=== PATIENT | male | born 1990 | race Caucasian/White ===

== ENCOUNTER 2016-11-19 13:08 | Emergency (ER) | payer MEDICAID ==
[2016-11-19 13:22] VITALS: BP 128/74
--- NOTE | 2016-11-19 14:39 | ED Physician Documentation ---
PD HPI MHE - Stated complaint Stated Complaint: RX REFILL - Chief complaint Chief Complaint: General - History obtained from History obtained from: Patient - History of Present Illness Primary symptom: Anxiety, Other (sleep problems) Timing - onset: Chronic Contributing factors: Out of meds (his brother had back surgery and he is here to help out the family for a month now and still will be here longer. Tried to get appt with local clinic but [facility] was earliest and is still not until end of the month. He is out of his usual meds for couple weeks now and feeling anxious and sleep problems. Here for Rx of his meds to get him til first clinic appt.) Recently seen: Not recently seen (last visit to PMD was few months ago back home.) Review of Systems Constitutional: denies: Fever Nose: denies: Rhinorrhea / runny nose, Congestion Throat: denies: Sore throat Respiratory: denies: Cough GI: denies: Nausea, Vomiting Psychiatric: reports: Anxiety, Insomnia. denies: Depressed, Suicidal Endocrine: denies: Weight loss Immunocompromised: denies: Immunocompromised PD PAST MEDICAL HISTORY - Present Medications Home Medications: Ambulatory Orders Medication Instructions Recorded Confirmed Lorazepam [Ativan] 1 mg PO BID 11/19/16 11/19/16 Lorazepam [Ativan] 1 mg PO BID PRN #60 tablet 11/19/16 Quetiapine Fumarate [Seroquel Xr] 300 mg PO DAILY 11/19/16 11/19/16 Quetiapine Fumarate [Seroquel Xr] 300 mg PO DAILY #30 tab.er.24h 11/19/16 - Allergies Allergies/Adverse Reactions: Allergies Allergy/AdvReac Type Severity Reaction Status Date / Time kiwi Allergy Unknown Verified 11/19/16 13:22 watermelon Allergy Unknown Verified 11/19/16 13:22 - Social History Does the pt smoke?: No Smoking Status: Never smoker PD ED PE NORMAL - Vitals Vital signs reviewed: Yes - General General: Alert and oriented X 3, No acute distress, Well developed/nourished - Neck Neck: Supple, no meningeal sign, No adenopathy - Cardiac Cardiac: RRR, No murmur - Respiratory Respiratory: Clear bilaterally - Derm Derm: Normal color, Warm and dry - Neuro Neuro: Alert and oriented X 3, No motor deficit, Normal speech Results - Vitals Vitals: Vital Signs - 24 hr 11/19/16 13:16 Temperature 37.5 C Heart Rate 97 Respiratory 18 Rate Blood Pressure 128/74 O2 Saturation 98 Oxygen O2 Source Room air Departure - Departure Disposition: 01 Home, Self Care Clinical Impression: Anxiety, Medication requested Condition: Stable Record reviewed to determine appropriate education?: Yes Follow-Up: [facility] [Provider Group] Prescriptions: Lorazepam [Ativan] 1 mg PO BID PRN #60 tablet PRN Reason: Anxiety Quetiapine Fumarate [Seroquel Xr] 300 mg PO DAILY #30 tab.er.24h Comments: Resume your usual medications. Follow up [facility] on as planned. Drink lots of fluids. Discharge Date/Time: 11/19/16 14:53
== END 2016-11-19 14:53 | disposition home or self-care (01) ==
LOC: ED 13:08
DX: Z76.0 Encounter for issue of repeat prescription (principal); F41.9 Anxiety disorder, unspecified
CPT/HCPCS: 99283

== ENCOUNTER 2016-11-22 18:41 | Emergency (ER) | payer MEDICAID ==
[2016-11-22] MEDS ORDERED: SODIUM CHLORIDE 0.9% 1,000 ML IV ONE ×2 (19:30)
[2016-11-22] MEDS ORDERED: KETOROLAC 60 MG/2 ML VIAL IVP STA (19:37)
[2016-11-22] MEDS ORDERED: KETOROLAC 30 MG/ML VIAL ONE (19:46)
[2016-11-22] MEDS ORDERED: IOPAMIDOL-300 100 ML VIAL IVP ONE (20:10)
[2016-11-22] MEDS ORDERED: DICYCLOMINE 10 MG CAPSULE PO STA (20:41)
[2016-11-22] MEDS ORDERED: DICYCLOMINE 10 MG CAPSULE PO ONE (20:44)
[2016-11-22] MEDS ORDERED: SUCRALFATE 1 GM/10 ML UDC PO STA (20:49)
[2016-11-22] MEDS ORDERED: MAG HYDROX/AL HYDROX/SIMETH 30 ML UDC PO STA (20:49)
[2016-11-22] MEDS ORDERED: LIDOCAINE VISCOUS 2% 15 ML UDC MM STA (20:49)
[2016-11-22] MEDS ORDERED: LIDOCAINE VISCOUS 2% 15 ML UDC MM ONE (20:56)
[2016-11-22] MEDS ORDERED: MAG HYDROX/AL HYDROX/SIMETH 30 ML UDC ONE (20:57)
== END 2016-11-22 20:59 | disposition home or self-care (01) ==
DX: K21.9 Gastro-esophageal reflux disease without esophagitis (principal); R19.7 Diarrhea, unspecified; F17.200 Nicotine dependence, unspecified, uncomplicated
CPT/HCPCS: 36415; 74177; 80053; 83690; 85025; 96374; 99283; 99284; A9270; Q9967

== ENCOUNTER 2016-12-15 13:10 | Emergency (ER) | payer MEDICAID ==
[2016-12-15 13:41] VITALS: BP 156/90
--- NOTE | 2016-12-15 13:54 | ED Physician Documentation ---
History of Present Illness - Stated complaint Stated Complaint: MED REFILL - Chief complaint Chief Complaint: General - History obtained from History obtained from: Patient - History of Present Illness Timing: Other (Recently moved to the area, out of his medications and needs a refill, no acute emergency. He had an appointment with a psychiatrist a few days ago but they canceled it, he is rescheduled for the 17th of this month. Denies suicidal or homicidal ideations.) Review of Systems Constitutional: reports: Reviewed and negative Throat: reports: Reviewed and negative Cardiac: reports: Reviewed and negative PD PAST MEDICAL HISTORY - Past Medical History GI: GERD Psych: Anxiety, ADD/ADHD - Past Surgical History Past Surgical History: No - Present Medications Home Medications: Ambulatory Orders Medication Instructions Recorded Confirmed Quetiapine Fumarate [Seroquel Xr] 300 mg PO DAILY #30 tab.er.24h 11/19/16 Omeprazole [PriLOSEC] 20 mg PO DAILY #30 capsule 11/22/16 12/15/16 Ondansetron Odt [Zofran] 4 mg TL Q6H PRN #10 tablet 11/22/16 12/15/16 Sucralfate 1 gm PO ACHS #60 tablet 11/22/16 12/15/16 Alprazolam [Xanax] 1 mg ORAL BID 12/15/16 12/15/16 Alprazolam [Xanax] 1 mg PO BID PRN #20 tablet 12/15/16 Omeprazole [PriLOSEC] 20 mg PO DAILY #30 capsule 12/15/16 Quetiapine Fumarate [Seroquel Xr] 300 mg PO DAILY #30 tab.er.24h 12/15/16 Sucralfate 1 gm PO ACHS #60 tablet 12/15/16 - Allergies Allergies/Adverse Reactions: Allergies Allergy/AdvReac Type Severity Reaction Status Date / Time kiwi Allergy Unknown Verified 12/15/16 13:36 watermelon Allergy Unknown Verified 12/15/16 13:36 - Social History Does the pt smoke?: No Smoking Status: Never smoker Does the pt drink ETOH?: No Does the pt have substance abuse?: No - Immunizations Immunizations are current?: Yes PD ED PE NORMAL - Vitals Vital signs reviewed: Yes - General General: Alert and oriented X 3, No acute distress - Neck Neck: Supple, no meningeal sign, No bony TTP - Neuro Neuro: Alert and oriented X 3, exhibits curator 2-12 intact, No motor deficit, No sensory deficit - Psych Psych: Normal mood, Normal affect Results - Vitals Vitals: Vital Signs - 24 hr 12/15/16 13:38 Temperature 37.2 C Heart Rate 92 Respiratory 18 Rate Blood Pressure 156/90 H O2 Saturation 99 Oxygen O2 Source Room air Departure - Departure Disposition: Home, Self Care Clinical Impression: Anxiety GERD (gastroesophageal reflux disease) Qualifiers: Esophagitis presence: esophagitis presence not specified Qualified Code(s): K21.9 - Gastro-esophageal reflux disease without esophagitis Condition: Good Record reviewed to determine appropriate education?: Yes Instructions: ED Stress React, ED GERD Prescriptions: Omeprazole [PriLOSEC] 20 mg PO DAILY #30 capsule Quetiapine Fumarate [Seroquel Xr] 300 mg PO DAILY #30 tab.er.24h Sucralfate 1 gm PO ACHS #60 tablet Alprazolam [Xanax] 1 mg PO BID PRN #20 tablet PRN Reason: Anxiety Comments: Further prescriptions from your primary care physician or your psychiatrist. Your blood pressure was elevated today on check in to the emergency department. This does not mean that you have hypertension, it is a common phenomenon to check into the emergency department and have elevated blood pressure. I recommend that you see your primary care physician within the week to have it rechecked when you're feeling better.
== END 2016-12-15 14:03 | disposition home or self-care (01) ==
LOC: ED 13:10
DX: Z76.0 Encounter for issue of repeat prescription (principal); K21.9 Gastro-esophageal reflux disease without esophagitis; F41.9 Anxiety disorder, unspecified; R03.0 Elevated blood-pressure reading, without diagnosis of hypertension
CPT/HCPCS: 99283

== ENCOUNTER 2017-01-23 15:32 | Emergency (ER) | payer MEDICAID ==
[2017-01-23 15:55] VITALS: BP 136/87
--- NOTE | 2017-01-23 16:28 | ED Physician Documentation ---
History of Present Illness - Stated complaint Stated Complaint: MED REFILL - Chief complaint Chief Complaint: General - History obtained from History obtained from: Patient - History of Present Illness Timing: Today - Additonal information Additional information: 26 y/o male with chronic anxiety and schizophrenia has run out of his medications and does not have an appointment to see the prescriber until the of this month. Review of Systems Constitutional: denies: Fever Eyes: denies: Decreased vision Ears: denies: Ear pain Nose: denies: Reviewed and negative Throat: denies: Sore throat Cardiac: denies: Chest pain / pressure Respiratory: denies: Cough GI: denies: Abdominal Pain, Nausea, Vomiting : denies: Dysuria, Frequency Skin: denies: Rash Musculoskeletal: denies: Neck pain, Back pain Neurologic: denies: Generalized weakness Psychiatric: reports: Anxiety PD PAST MEDICAL HISTORY - Past Medical History Past Medical History: Yes Cardiovascular: Hypertension Respiratory: Asthma GI: GERD : None Psych: Anxiety, ADD/ADHD Musculoskeletal: None - Past Surgical History Past Surgical History: No - Present Medications Home Medications: Ambulatory Orders Medication Instructions Recorded Confirmed Omeprazole [PriLOSEC] 20 mg PO DAILY #30 capsule 11/22/16 01/23/17 Alprazolam [Xanax] 1 mg PO BID PRN #20 tablet 12/15/16 01/23/17 Quetiapine Fumarate [Seroquel Xr] 300 mg PO DAILY #30 tab.er.24h 12/15/16 Alprazolam [Xanax] 1 mg PO Q8HR PRN #20 tablet 01/23/17 Omeprazole [PriLOSEC] 20 mg PO DAILY #30 capsule 01/23/17 Quetiapine Fumarate [Seroquel Xr] 300 mg PO DAILY #30 tab.er.24h 01/23/17 - Allergies Allergies/Adverse Reactions: Allergies Allergy/AdvReac Type Severity Reaction Status Date / Time kiwi Allergy Unknown Verified 01/23/17 15:38 watermelon Allergy Unknown Verified 01/23/17 15:38 - Social History Does the pt smoke?: Yes Smoking Status: Current every day smoker Does the pt drink ETOH?: No Does the pt have substance abuse?: No - Immunizations Immunizations are current?: Yes PD ED PE NORMAL - Vitals Vital signs reviewed: Yes (tachy and hypertensive ) - General General: Alert and oriented X 3, No acute distress, Well developed/nourished - HEENT HEENT: Atraumatic, PERRL - Respiratory Respiratory: No respiratory distress - Derm Derm: Normal color, No rash - Extremities Extremities: No deformity, No edema - Neuro Neuro: No motor deficit, No sensory deficit, Normal speech - Psych Psych: Normal mood, Normal affect Results - Vitals Vitals: Vital Signs - 24 hr 01/23/17 01/23/17 15:33 15:52 Temperature 37 C Heart Rate 116 H 102 H Respiratory 20 20 Rate Blood Pressure 140/82 H 136/87 H O2 Saturation 99 98 Oxygen O2 Source Room air PD MEDICAL DECISION MAKING - ED course Complexity details: reviewed old records, considered differential, d/w patient ED course: 26 y/o male with a history of schizophrenia and anxiety is out of his medications and has only made it through the initial intake and still needs to get together with the prescriber. Departure - Departure Disposition: 01 Home, Self Care Clinical Impression: Anxiety, Medication refill Condition: Stable Instructions: ED Stress React Follow-Up: [facility] [Provider Group] Prescriptions: Alprazolam [Xanax] 1 mg PO Q8HR PRN #20 tablet PRN Reason: Anxiety Omeprazole [PriLOSEC] 20 mg PO DAILY #30 capsule Quetiapine Fumarate [Seroquel Xr] 300 mg PO DAILY #30 tab.er.24h Comments: Today in the Emergency Department your blood pressure was elevated. This can happen from the stress of the visit itself, from a current illness or circumstance or from uncontrolled hypertension. If you take blood pressure medications take your usual mediations, have your blood pressure re-checked in an appropriate setting and follow up any elevation with your primary care doctor.
== END 2017-01-23 16:37 | disposition home or self-care (01) ==
LOC: ED 15:32
DX: F41.9 Anxiety disorder, unspecified (principal); Z76.0 Encounter for issue of repeat prescription; R03.0 Elevated blood-pressure reading, without diagnosis of hypertension; I10 Essential (primary) hypertension; F17.200 Nicotine dependence, unspecified, uncomplicated
CPT/HCPCS: 99283

== ENCOUNTER 2017-03-02 17:04 | Emergency (ER) | payer MEDICAID ==
--- NOTE | 2017-03-02 21:05 | ED Physician Documentation ---
PD HPI Fall - Stated complaint Stated Complaint: BACK PX,KNEE PX - Chief complaint Chief Complaint: Trauma Ext - History obtained from History obtained from: Patient - History of Present Illness Mechanism of injury: Tripped (he tripped on forklift lift bar that was slightly off the ground. Right foot caught under it, with impact of the ankle and then it twisted as he fell. He landed onto left knee and also twisted low back.) Fall distance: Standing position Where injury occurred: Other (at a local store) Timing - onset: Today (about 35 min [employer] BLASTING) Injury(ies) location: Back (right mid to lower lumbar with area of redness/ contusion across that area.), Right Lower Extremity (ankle), Left Lower Extremity (knee). No: Head, Neck, Chest, Abdomen Quality of pain: Pain, Aching, Other (spasms in low back) Associated symptoms: No: LOC, Weakness, Paresthesias Worsens with: Movement Similar symptoms before: Has not had sx before (not for ankle and knee. he says he has ongoing low back pain that had been in pain clinic for, but not currently on meds for it.) Recently seen: Not recently seen Review of Systems Skin: denies: Abrasion (s), Laceration (s) Musculoskeletal: reports: Back pain. denies: Neck pain Neurologic: denies: Focal weakness, Numbness PD PAST MEDICAL HISTORY - Past Medical History Past Medical History: Yes Cardiovascular: Hypertension Respiratory: Asthma GI: GERD : None Psych: Anxiety, ADD/ADHD Musculoskeletal: Chronic back pain - Past Surgical History Past Surgical History: No - Present Medications Home Medications: Ambulatory Orders Medication Instructions Recorded Confirmed Alprazolam [Xanax] 1 mg PO BID PRN #20 tablet 12/15/16 03/02/17 Quetiapine Fumarate [Seroquel Xr] 300 mg PO DAILY #30 tab.er.24h 12/15/16 Omeprazole [PriLOSEC] 20 mg PO DAILY #30 capsule 01/23/17 03/02/17 Methocarbamol [Robaxin] 500 mg PO Q6H PRN #25 tablet 03/02/17 Naproxen [Naprosyn] 500 mg PO BID #30 tablet 03/02/17 Oxycodone HCl/Acetaminophen 1 each PO Q6H PRN #20 tablet 03/02/17 [Percocet 5-325 mg Tablet] - Allergies Allergies/Adverse Reactions: Allergies Allergy/AdvReac Type Severity Reaction Status Date / Time kiwi Allergy Unknown Verified 03/02/17 17:09 watermelon Allergy Unknown Verified 03/02/17 17:09 - Social History Does the pt smoke?: Yes Smoking Status: Current every day smoker Does the pt drink ETOH?: No Does the pt have substance abuse?: No - Immunizations Immunizations are current?: Yes PD ED PE NORMAL - Vitals Vital signs reviewed: Yes - General General: Alert and oriented X 3, Well developed/nourished - HEENT HEENT: Atraumatic - Abdomen Abdomen: Soft, Non tender - Back Back: No spinal TTP (but is tender in right mid to lower lumbar muscles, with 3- 4 inch wide focal redness across from mid to right lumbar. ) - Derm Derm: Normal color, Warm and dry - Extremities Extremities: Other (left anterior knee with tenderness over the patella, and some creaking feeling with flex/extension c/w some tendonitis. No effusion of the knee. Right ankle with swelling and tenderness anterolaterally, without obvious deformity. No effusion. ) Results - Vitals Vitals: Oxygen O2 Source Room air - Rads (name of study) right ankle Radiology: Prelim report reviewed (no fractures) left knee Radiology: Prelim report reviewed (no fractures) lumbar Radiology: Prelim report reviewed (no fractures) Departure - Departure Disposition: 01 Home, Self Care Clinical Impression: Fall from slip, trip, or stumble Qualifiers: Encounter type: initial encounter Qualified Code(s): W01.0XXA - Fall on same level from slipping, tripping and stumbling without subsequent striking against object, initial encounter Ankle sprain Qualifiers: Encounter type: initial encounter Involved ligament of ankle: other ligament Laterality: right Qualified Code(s): S93.491A - Sprain of other ligament of right ankle, initial encounter Knee contusion Qualifiers: Encounter type: initial encounter Laterality: left Qualified Code(s): S80.02XA - Contusion of left knee, initial encounter Contusion of lower back Qualifiers: Encounter type: initial encounter Qualified Code(s): S30.0XXA - Contusion of lower back and pelvis, initial encounter Condition: Stable Record reviewed to determine appropriate education?: Yes Instructions: ED Sprain Ankle W X Ray, ED Contusion Back Prescriptions: Naproxen [Naprosyn] 500 mg PO BID #30 tablet Oxycodone HCl/Acetaminophen [Percocet 5-325 mg Tablet] 1 each PO Q6H PRN #20 tablet PRN Reason: Pain Methocarbamol [Robaxin] 500 mg PO Q6H PRN #25 tablet PRN Reason: Spasms Comments: Use ankle brace when up and around for the next week or 2 until fully improved. Naproxen twice daily for the next 1-2 weeks. Add Robaxin as needed for muscle spasms and stiffness. Add Tylenol or Percocet if needed for pain. Recheck if not improved over the next several days to week. Ice to the swollen areas can help for the first day or 2 as well. Discharge Date/Time: 03/02/17 22:55
[2017-03-02] MEDS ORDERED: oxyCOD/ACETAMIN 5 MG/325 MG TABLET PO STA (21:26)
[2017-03-02] MEDS ORDERED: oxyCODONE/ACET 5/325 Prepack 4 PO STA (21:26)
[2017-03-02] MEDS ORDERED: diazePAM 5 MG TABLET PO STA (21:26)
[2017-03-02] MEDS ORDERED: CYCLOBENZAPRINE 10 MG Prepack 2 PO PRN (21:26)
[2017-03-02] MEDS ORDERED: IBUPROFEN 600 MG TABLET PO STA (21:26)
[2017-03-02] MEDS ORDERED: oxyCOD/ACETAMIN 5 MG/325 MG TABLET PO ONE (21:32)
[2017-03-02] MEDS ORDERED: diazePAM 5 MG TABLET PO ONE (21:32)
[2017-03-02] MEDS ORDERED: IBUPROFEN 600 MG TABLET PO ONE (21:32)
[2017-03-02] MEDS ORDERED: CYCLOBENZAPRINE 10 MG Prepack 2 PO ONE (22:00)
[2017-03-02] MEDS ORDERED: oxyCODONE/ACET 5/325 Prepack 4 PO ONE (22:00)
--- NOTE | 2017-03-02 22:19 | XRAY Preliminary Report ---
Exam: XR Ankle 3 View RT IMPRESSION: No evidence of fracture. [facility] SITE ID: [id number]
--- NOTE | 2017-03-02 22:22 | XRAY Preliminary Report ---
Exam: XR Knee 3 View LT IMPRESSION: Normal knee radiography. [facility] SITE ID: [id number]
--- NOTE | 2017-03-02 22:22 | XRAY Report ---
EXAM: RIGHT ANKLE RADIOGRAPHY EXAM DATE: 03/02/2017 10:04 PM. CLINICAL HISTORY: Fall with ankle injury, right ankle pain. COMPARISON: None. TECHNIQUE: 3 views. FINDINGS: Bones: Normal. No fractures or bone lesions. Joints: Normal. No effusion. No subluxations. The ankle mortise is normally aligned. Soft Tissues: There is mild edema overlying medial malleolus. IMPRESSION: No evidence of fracture. [facility] Referring Provider Line: [phone] SITE ID: [id number]
--- NOTE | 2017-03-02 22:25 | XRAY Report ---
EXAM: LEFT KNEE RADIOGRAPHY EXAM DATE: 03/02/2017 10:04 PM. CLINICAL HISTORY: Fall onto left knee. COMPARISON: None. TECHNIQUE: 3 views. FINDINGS: Bones: Normal. No fractures or bone lesions. Joints: Normal. No effusion. No subluxations. Soft Tissues: Normal. No soft tissue swelling. IMPRESSION: Normal knee radiography. [facility] Referring Provider Line: [phone] SITE ID: [id number]
--- NOTE | 2017-03-02 22:31 | XRAY Preliminary Report ---
Exam: XR Lumbar Spine 2 View IMPRESSION: Normal lumbar spine radiography. [facility] SITE ID: [id number]
--- NOTE | 2017-03-02 22:34 | XRAY Report ---
EXAM: LUMBOSACRAL SPINE RADIOGRAPHY EXAM DATE: 03/02/2017 10:04 PM. CLINICAL HISTORY: Fall with impact to low back. COMPARISONS: None. TECHNIQUE: 3 views. FINDINGS: Alignment: Normal. No spondylolisthesis or scoliosis. Bones: Five [id number] lumbar vertebral bodies are present. No fractures or bone lesions. Disks: Normal. Disk heights are maintained. Facets: No degenerative changes. Sacroiliac Joints: Unremarkable. Soft Tissues: Normal. The visualized bowel gas pattern is normal. IMPRESSION: Normal lumbar spine radiography. [facility] Referring Provider Line: [phone] SITE ID: [id number]
[2017-03-02 22:48] VITALS: BP 133/82
== END 2017-03-02 22:55 | disposition home or self-care (01) ==
LOC: ED 17:04
DX: S93.401A Sprain of unspecified ligament of right ankle, initial encounter (principal); S80.02XA Contusion of left knee, initial encounter; S30.0XXA Contusion of lower back and pelvis, initial encounter; W01.0XXA Fall on same level from slipping, tripping and stumbling without subsequent striking against object, initial encounter; I10 Essential (primary) hypertension; J45.909 Unspecified asthma, uncomplicated; K21.9 Gastro-esophageal reflux disease without esophagitis; F17.200 Nicotine dependence, unspecified, uncomplicated
CPT/HCPCS: 72100; 73562; 73610; 99283; 99284; A9270

== ENCOUNTER 2017-05-23 14:47 | Emergency (ER) | payer MEDICAID ==
[2017-05-23 15:00] VITALS: BP 153/92
--- NOTE | 2017-05-23 15:21 | ED Physician Documentation ---
PD HPI BACK INJURY - Stated complaint Stated Complaint: BACK PX,LT LEG PX - History obtained from History obtained from: Patient - History of Present Illness Location: Other (26-year-old gentleman who 3 months ago had a slip and fall at a store, since then has had left low back pain radiating into the left leg with numbness in the left leg but no saddle anesthesia or fevers. He does not have a primary care physician with whom to follow-up. He also complains of recurrence of his reflux, he had been on Prilosec in the past for it but again does not have a local primary care physician.) Review of Systems Constitutional: denies: Fever, Chills Throat: denies: Dental pain / toothache, Sore throat Cardiac: denies: Chest pain / pressure, Palpitations Respiratory: denies: Dyspnea, Cough PD PAST MEDICAL HISTORY - Past Medical History Cardiovascular: Hypertension Respiratory: Asthma GI: GERD : None Psych: Anxiety, ADD/ADHD Musculoskeletal: Chronic back pain - Past Surgical History Past Surgical History: No - Present Medications Home Medications: Ambulatory Orders Medication Instructions Recorded Confirmed Alprazolam [Xanax] 1 mg PO BID PRN #20 tablet 12/15/16 05/23/17 Quetiapine Fumarate [Seroquel Xr] 300 mg PO DAILY #30 tab.er.24h 12/15/16 Omeprazole [PriLOSEC] 20 mg PO DAILY #30 capsule 01/23/17 05/23/17 Methocarbamol [Robaxin] 500 mg PO Q6H PRN #25 tablet 03/02/17 05/23/17 Naproxen [Naprosyn] 500 mg PO BID #30 tablet 03/02/17 05/23/17 Oxycodone HCl/Acetaminophen 1 each PO Q6H PRN #20 tablet 03/02/17 05/23/17 [Percocet 5-325 mg Tablet] Omeprazole [PriLOSEC] 20 mg PO DAILY #14 capsule 05/23/17 Oxycodone HCl/Acetaminophen 1 - 2 tab PO Q4H PRN #15 tablet 05/23/17 [Percocet 5-325 mg Tablet] - Allergies Allergies/Adverse Reactions: Allergies Allergy/AdvReac Type Severity Reaction Status Date / Time kiwi Allergy Unknown Verified 03/02/17 17:09 watermelon Allergy Unknown Verified 03/02/17 17:09 - Social History Does the pt smoke?: Yes Smoking Status: Current every day smoker Does the pt drink ETOH?: No Does the pt have substance abuse?: No - Immunizations Immunizations are current?: Yes PD ED PE NORMAL - Vitals Vital signs reviewed: Yes - General General: Alert and oriented X 3, No acute distress - HEENT HEENT: Pharynx benign - Neck Neck: Supple, no meningeal sign, No bony TTP - Cardiac Cardiac: RRR, No murmur - Respiratory Respiratory: No respiratory distress, Clear bilaterally - Abdomen Abdomen: Soft, Non tender - Back Back: No spinal TTP - Extremities Extremities: Other (Mildly diminished sensation in the left L4 distribution but symmetric patellar and Achilles reflexes. He has normal flexion and extension of the knee, but diminished flexion and extension at the left foot, I think because of pain.) - Neuro Neuro: Alert and oriented X 3, Normal speech - Psych Psych: Normal mood, Normal affect Results - Vitals Vitals: Vital Signs - 24 hr 05/23/17 14:54 Temperature 37.3 C Heart Rate 105 H Respiratory 20 Rate Blood Pressure 153/92 H O2 Saturation 99 Oxygen O2 Source Room air PD MEDICAL DECISION MAKING - ED course ED course: This patient has seemingly uncomplicated musculoskeletal back pain. The patient has no "red flags." Specifically denies IV drug use, fevers, incontinence, saddle anesthesia. Spinal epidural abscess was considered, given that the patient has no fever, is not diabetic, has no spinal tenderness, does not use IV drugs, and has no bilateral neurologic symptoms, the diagnosis of spinal epidural abscess is considered exceedingly unlikely. He understands he needs to follow-up with his primary care physician for evaluation for physical therapy versus MRI of his back, there is no indication for plain film imaging 4 months after the accident. He has radicular symptoms, presumably a left L4 radiculopathy. His Prilosec is refilled. He also wonders if he might have sleep apnea, again primary care follow-up was encouraged. The [place] prescription monitoring program was queried with regard to this patient. No concerning findings were found. The patient and family were counseled as to the diagnosis and need for follow- up. I counseled the patient with regard to signs and symptoms that would necessitate an urgent reevaluation in the emergency department. They understand they are welcome to return at any time if worse or if not improving as expected. This document was made in part using voice recognition software. While efforts are made to proofread this documents, sound alike and grammatical errors may occur. Departure - Departure Disposition: 01 Home, Self Care Clinical Impression: Lumbar radiculopathy GERD (gastroesophageal reflux disease) Qualifiers: Esophagitis presence: esophagitis presence not specified Qualified Code(s): K21.9 - Gastro-esophageal reflux disease without esophagitis Condition: Good Record reviewed to determine appropriate education?: Yes Instructions: GERD Dc, ED Sciatica Follow-Up: [facility] [Provider Group] Prescriptions: Omeprazole [PriLOSEC] 20 mg PO DAILY #14 capsule Oxycodone HCl/Acetaminophen [Percocet 5-325 mg Tablet] 1 - 2 tab PO Q4H PRN #15 tablet PRN Reason: Pain Comments: Call your doctor to arrange a follow-up appointment, make the next available appointment. In the interim, return anytime if worse or if new symptoms develop. Your blood pressure was elevated today on check into the emergency department. This does not mean that you have hypertension, it is a common phenomenon to come to the emergency department and have elevated blood pressure. I recommend that she see your primary care physician within the week to have it rechecked when you are feeling better.
== END 2017-05-23 16:05 | disposition home or self-care (01) ==
LOC: ED 14:47
DX: M54.16 Radiculopathy, lumbar region (principal); K21.9 Gastro-esophageal reflux disease without esophagitis; I10 Essential (primary) hypertension; F17.200 Nicotine dependence, unspecified, uncomplicated
CPT/HCPCS: 99283

== ENCOUNTER 2017-06-02 20:25 | Emergency (ER) | payer MEDICAID ==
[2017-06-02] MEDS ORDERED: KETOROLAC 60 MG/2 ML VIAL IM STA (21:01)
[2017-06-02] MEDS ORDERED: DEXAMETHASONE 10 MG/ML VIAL PO STA (21:02)
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
[2017-06-02] MEDS ORDERED: DEXAMETHASONE 10 MG/ML VIAL ONE (21:12)
[2017-06-02] MEDS ORDERED: KETOROLAC 60 MG/2 ML VIAL ONE (21:12)
[2017-06-02 21:35] VITALS: BP 130/70
== END 2017-06-02 21:35 | disposition home or self-care (01) ==
LOC: ED 20:25
DX: M54.16 Radiculopathy, lumbar region (principal); G89.29 Other chronic pain; I10 Essential (primary) hypertension; F17.200 Nicotine dependence, unspecified, uncomplicated
CPT/HCPCS: 99283

== ENCOUNTER 2017-11-22 11:52 | Emergency (ER) | payer MEDICAID ==
[2017-11-22 12:09] VITALS: BP 141/77
--- NOTE | 2017-11-22 13:04 | ED Physician Documentation ---
PD HPI BACK PAIN - Stated complaint Stated Complaint: BACK PX - Chief complaint Chief Complaint: Back Pain - History obtained from History obtained from: Patient - History of Present Illness Timing - onset: Other (He has had ongoing back pain since a fall last year, 2 days ago he also fell and developed a spasm in his right back and his right neck. No other injuries. He also notes that he needs a refill on his albuterol inhaler and he is often short of breath at night but not currently.) Review of Systems Constitutional: reports: Reviewed and negative Cardiac: reports: Reviewed and negative Respiratory: reports: Reviewed and negative PD PAST MEDICAL HISTORY - Past Medical History Cardiovascular: Hypertension Respiratory: Asthma GI: GERD : None Psych: Anxiety, ADD/ADHD Musculoskeletal: Chronic back pain - Past Surgical History Past Surgical History: No - Present Medications Home Medications: Ambulatory Orders Medication Instructions Recorded Confirmed Quetiapine Fumarate [Seroquel Xr] 300 mg PO DAILY #30 tab.er.24h 12/15/16 Albuterol Sulfate [Proventil Hfa 1 - 2 puffs IH Q4H PRN #1 11/22/17 Inhaler] hfa.aer.ad Cyclobenzaprine [Flexeril] 10 mg PO TID PRN #20 tablet 11/22/17 Oxycodone HCl/Acetaminophen 1 - 2 tab PO Q4H PRN #10 tablet 11/22/17 [Percocet 5-325 mg Tablet] - Allergies Allergies/Adverse Reactions: Allergies Allergy/AdvReac Type Severity Reaction Status Date / Time kiwi Allergy Unknown Verified 06/02/17 20:33 watermelon Allergy Unknown Verified 06/02/17 20:33 - Social History Does the pt smoke?: Yes Smoking Status: Current every day smoker Does the pt drink ETOH?: No Does the pt have substance abuse?: No - Immunizations Immunizations are current?: Yes - POLST Patient has POLST: No PD ED PE NORMAL - Vitals Vital signs reviewed: Yes - General General: Alert and oriented X 3, No acute distress - Neck Neck: Other (There is no midline bony tenderness or pain with flexion or extension of the neck, he does have pain with rotation to the left and is tender over the left sternocleidomastoid.) - Respiratory Respiratory: Clear bilaterally - Back Back: No spinal TTP, Other (He is tender over the left paralumbar and parathoracic muscles) - Extremities Extremities: Other (The patient has equal and normal Achilles and patellar reflexes bilaterally. Normal sensation in all areas of the legs. Patient denies saddle anesthesia. Normal strength in flexion-extension at the ankles, knees, and flexion of the hips.) - Neuro Neuro: Alert and oriented X 3, Normal speech Results - Vitals Vitals: Vital Signs - 24 hr 11/22/17 12:06 Temperature 36.9 C Heart Rate 102 H Respiratory 14 Rate Blood Pressure 141/77 H O2 Saturation 98 Oxygen O2 Source Room air PD MEDICAL DECISION MAKING - ED course ED course: This patient has seemingly uncomplicated musculoskeletal back pain. The patient has no "red flags." Specifically denies IV drug use, fevers, incontinence, saddle anesthesia. Spinal epidural abscess was considered, given that the patient has no fever, is not diabetic, has no spinal tenderness, does not use IV drugs, and has no bilateral neurologic symptoms, the diagnosis of spinal epidural abscess is considered exceedingly unlikely. The [place] prescription monitoring program was queried with regard to this patient. No concerning findings were found. Departure - Departure Disposition: 01 Home, Self Care Clinical Impression: Medication refill Back pain Qualifiers: Back pain location: thoracic back pain Chronicity: chronic Back pain laterality : right Qualified Code(s): M54.6 - Pain in thoracic spine; G89.29 - Other chronic pain; G89.29 - Other chronic pain Condition: Good Record reviewed to determine appropriate education?: Yes Instructions: ED Neck Back Pain General Prescriptions: Albuterol Sulfate [Proventil Hfa Inhaler] 1 - 2 puffs IH Q4H PRN #1 hfa.aer.ad PRN Reason: Cough Cyclobenzaprine [Flexeril] 10 mg PO TID PRN #20 tablet PRN Reason: Pain Oxycodone HCl/Acetaminophen [Percocet 5-325 mg Tablet] 1 - 2 tab PO Q4H PRN #10 tablet PRN Reason: Pain Comments: Call your doctor to arrange a follow-up appointment, make the next available appointment. In the interim, return anytime if worse or if new symptoms develop. Do not drink or drive while taking narcotic pain medication. Note that many narcotic pain relievers also contain Tylenol/acetaminophen. Please ensure that your total dose of acetaminophen from all sources does not exceed 3 g (3000 mg) per day. You may get constipated while on this medication. Take a stool softener such as Colace twice a day while you are on it. Also add an ktak-blq-mwwcnpr laxative such as senna or MiraLAX on any day that you do not have a bowel movement. If you received a narcotic pain medication or sedative while in the emergency department, do not drive for the next 24 hours. Your blood pressure was elevated today on check into the emergency department. This does not mean that you have hypertension, it is a common phenomenon to come to the emergency department and have elevated blood pressure. I recommend that you see your primary care physician within the week to have it rechecked when you are feeling better.
== END 2017-11-22 13:05 | disposition home or self-care (01) ==
LOC: ED 11:52
DX: Z76.0 Encounter for issue of repeat prescription (principal); M54.6 Pain in thoracic spine; G89.29 Other chronic pain; I10 Essential (primary) hypertension; J45.909 Unspecified asthma, uncomplicated; K21.9 Gastro-esophageal reflux disease without esophagitis; F17.200 Nicotine dependence, unspecified, uncomplicated
CPT/HCPCS: 99282; 99283

== ENCOUNTER 2018-01-26 17:39 | Emergency (ER) | payer MEDICAID ==
[2018-01-26] MEDS ORDERED: oxyCOD/ACETAMIN 5 MG/325 MG TABLET PO STA (18:48)
[2018-01-26] MEDS ORDERED: CYCLOBENZAPRINE 10 MG TABLET PO STA (18:49)
--- NOTE | 2018-01-26 18:52 | ED Physician Documentation ---
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 Has no PCP currently.) Timing - onset: Chronic Timing - duration: Years Timing - details: Gradual onset Pain level max: 9 Pain level now: 9 Quality: Pain, Spasm, Aching Improved by: Rest Worsened by: Moving, Palpating Associated symptoms: No: Fever, Weakness, Numbness, Incontinent of urine, Unable to urinate, Hematuria, Incontinent of stool Contributing factors: No: Prior back surgery Similar symptoms before: Diagnosis (chronic back pain) Recently seen: Not recently seen - Additional information Additional information: No IVDU Review of Systems Constitutional: denies: Fever, Chills Respiratory: denies: Cough GI: denies: Vomiting, Diarrhea : denies: Hesitancy, Incontinent Skin: denies: Rash Musculoskeletal: denies: Neck pain Neurologic: denies: Focal weakness, Numbness, Headache PD PAST MEDICAL HISTORY - Past Medical History Cardiovascular: Hypertension Respiratory: Asthma GI: GERD : None Psych: Anxiety, ADD/ADHD Musculoskeletal: Chronic back pain - Past Surgical History Past Surgical History: No - Present Medications Home Medications: Ambulatory Orders Medication Instructions Recorded Confirmed Quetiapine Fumarate [Seroquel Xr] 300 mg PO DAILY #30 tab.er.24h 12/15/16 Albuterol Sulfate [Proventil Hfa 1 - 2 puffs IH Q4H PRN #1 11/22/17 Inhaler] hfa.aer.ad Cyclobenzaprine [Flexeril] 10 mg PO TID PRN #20 tablet 11/22/17 Oxycodone HCl/Acetaminophen 1 - 2 tab PO Q4H PRN #10 tablet 11/22/17 [Percocet 5-325 mg Tablet] Cyclobenzaprine [Flexeril] 10 mg PO TID PRN #20 tablet 01/26/18 Oxycodone HCl/Acetaminophen 1 - 2 each PO Q6H PRN #14 tablet 01/26/18 [Percocet 5-325 mg Tablet] - Allergies Allergies/Adverse Reactions: Allergies Allergy/AdvReac Type Severity Reaction Status Date / Time kiwi Allergy Unknown Verified 06/02/17 20:33 watermelon Allergy Unknown Verified 06/02/17 20:33 - Social History Does the pt smoke?: Yes Smoking Status: Current every day smoker Does the pt drink ETOH?: No Does the pt have substance abuse?: No - Immunizations Immunizations are current?: Yes - POLST Patient has POLST: No PD ED PE NORMAL - Vitals Vital signs reviewed: Yes - General General: Alert and oriented X 3, No acute distress, Well developed/nourished - HEENT HEENT: Moist mucous membranes - Neck Neck: Supple, no meningeal sign - Cardiac Cardiac: RRR, Strong equal pulses - Respiratory Respiratory: No respiratory distress, Clear bilaterally - Abdomen Abdomen: Soft, Non tender, Non distended - Back Back: No spinal TTP, Other (No midline tenderness to palpation. Paraspinal muscle spasm present bilateral low lumbar and lower thoracic.) - Derm Derm: Warm and dry - Extremities Extremities: Normal ROM s pain, Other (normal bilateral lower extremity patellar and ankle jerk reflexes. Normal great toe extension bilaterally) - Neuro Neuro: Alert and oriented X 3, No motor deficit, No sensory deficit, Other (No saddle anesthesia) - Psych Psych: Normal mood, Normal affect Results - Vitals Vitals: Vital Signs - 24 hr 01/26/18 01/26/18 18:12 19:24 Temperature 36.3 C L Heart Rate 102 H 70 Respiratory 16 16 Rate Blood Pressure 127/75 125/67 O2 Saturation 100 95 Oxygen O2 Source Room air PD MEDICAL DECISION MAKING - ED course Complexity details: reviewed old records (Prior ED visits for same), reviewed results, re-evaluated patient, considered differential (no cauda equina, no spinal epidural abscess, no fracture, no aortic dissection or evidence of aneursym rupture), d/w patient ED course: Patient is a 27-year-old male who presents to the emergency department with acute on chronic low back pain. Will prescribe a small amount of pain medication for him. No red flags. Reviewed the prescription monitoring program and there is only one another prescription for narcotics in the past year. Patient counseled regarding signs and symptoms for which I believe and urgent re-evaluation would be necessary. Patient with good understanding of and agreement to plan and is comfortable going home at this time This document was made in part using voice recognition software. While efforts are made to proofread this document, sound alike and grammatical errors may occur. - Sepsis Event Vital Signs: Vital Signs - 24 hr 01/26/18 01/26/18 18:12 19:24 Temperature 36.3 C L Heart Rate 102 H 70 Respiratory 16 16 Rate Blood Pressure 127/75 125/67 O2 Saturation 100 95 Oxygen O2 Source Room air Departure - Departure Disposition: 01 Home, Self Care Clinical Impression: Back strain Qualifiers: Encounter type: initial encounter Qualified Code(s): S39.012A - Strain of muscle, fascia and tendon of lower back, initial encounter Condition: Good Instructions: ED Sprain Strain Lumbar Follow-Up: [facility] [Provider Group] [facility] [Provider Group] Prescriptions: Cyclobenzaprine [Flexeril] 10 mg PO TID PRN #20 tablet PRN Reason: Spasms Oxycodone HCl/Acetaminophen [Percocet 5-325 mg Tablet] 1 - 2 each PO Q6H PRN # 14 tablet PRN Reason: pain Comments: Return if you worsen. This should improve over the next few days. Do not drink alcohol or drive while on narcotic pain medicine. Note that many narcotic pain relievers also contain tylenol/acetaminophen. Please ensure that your total dose of acetaminophen from all sources does not exceed 3 grams (3000mg) per day. You may constipated on this medication, take a stool softener such as "Colace" twice a day while you are on it. Also recommend a [id number]-tvp-nxxzudd laxative such as senna or MiraLAX any day that you do not have a bowel movement. If you received narcotic pain medication in the emergency department, do not drive or operate machinery for the next 24 hours. Discharge Date/Time: 01/26/18 19:24
[2018-01-26 19:25] VITALS: BP 125/67
== END 2018-01-26 19:24 | disposition home or self-care (01) ==
LOC: ED 17:39
DX: S39.012A Strain of muscle, fascia and tendon of lower back, initial encounter (principal); X58.XXXA Exposure to other specified factors, initial encounter; Y93.H2 Activity, gardening and landscaping; Y99.0 Civilian activity done for income or pay; G89.29 Other chronic pain; I10 Essential (primary) hypertension; F17.200 Nicotine dependence, unspecified, uncomplicated
CPT/HCPCS: 99283; A9270

== ENCOUNTER 2018-01-29 16:31 | Emergency (ER) | payer MEDICAID ==
[2018-01-29] MEDS ORDERED: ALPRAZolam 0.25 MG TABLET PO STA (16:46)
[2018-01-29] MEDS ORDERED: oxyCOD/ACETAMIN 5 MG/325 MG TABLET PO STA (16:46)
--- NOTE | 2018-01-29 16:49 | ED Physician Documentation ---
History of Present Illness - Stated complaint Stated Complaint: ANXIETY - Chief complaint Chief Complaint: MHE - History obtained from History obtained from: Patient - History of Present Illness Timing: Chronic (27-year-old gentleman with chronic anxiety and chronic back pain who has been having a lot of issues lately with personal relationships and disabilities. He has had poor access to primary care follow-up because he has [facility] and there are a few local physicians that take it. He had been on Xanax in the past for anxiety but he wanted to stop it because it made him feel fuzzy but is anxiety and back pain and been ramping up over the last few days and are now severe.) Review of Systems Constitutional: denies: Fever, Chills Cardiac: denies: Chest pain / pressure, Palpitations Respiratory: denies: Dyspnea, Cough GI: denies: Abdominal Pain PD PAST MEDICAL HISTORY - Past Medical History Cardiovascular: Hypertension Respiratory: Asthma GI: GERD : None Psych: Anxiety, ADD/ADHD Musculoskeletal: Chronic back pain - Past Surgical History Past Surgical History: No - Present Medications Home Medications: Ambulatory Orders Medication Instructions Recorded Confirmed Quetiapine Fumarate [Seroquel Xr] 300 mg PO DAILY #30 tab.er.24h 12/15/16 Albuterol Sulfate [Proventil Hfa 1 - 2 puffs IH Q4H PRN #1 11/22/17 Inhaler] hfa.aer.ad Cyclobenzaprine [Flexeril] 10 mg PO TID PRN #20 tablet 11/22/17 Oxycodone HCl/Acetaminophen 1 - 2 tab PO Q4H PRN #10 tablet 11/22/17 [Percocet 5-325 mg Tablet] Cyclobenzaprine [Flexeril] 10 mg PO TID PRN #20 tablet 01/26/18 Oxycodone HCl/Acetaminophen 1 - 2 each PO Q6H PRN #14 tablet 01/26/18 [Percocet 5-325 mg Tablet] Alprazolam [Xanax] 1 mg PO BID PRN #10 tablet 01/29/18 oxyCODONE/ACET 5/325 [Percocet 5 1 each PO Q4-6H #10 tablet 01/29/18 mg/325 mg] - Allergies Allergies/Adverse Reactions: Allergies Allergy/AdvReac Type Severity Reaction Status Date / Time kiwi Allergy Unknown Verified 01/29/18 16:38 watermelon Allergy Unknown Verified 01/29/18 16:38 - Social History Does the pt smoke?: Yes Smoking Status: Current every day smoker Does the pt drink ETOH?: No Does the pt have substance abuse?: No - Immunizations Immunizations are current?: Yes - POLST Patient has POLST: No PD ED PE NORMAL - Vitals Vital signs reviewed: Yes - General General: Alert and oriented X 3, No acute distress - Abdomen Abdomen: Non tender - Back Back: No spinal TTP - Extremities Extremities: Other (The patient has equal and normal Achilles and patellar reflexes bilaterally. Normal sensation in all areas of the legs. Patient denies saddle anesthesia. Normal strength in flexion-extension at the ankles, knees, and flexion of the hips.) - Neuro Neuro: Alert and oriented X 3, Normal speech Eye Opening: Spontaneous Results - Vitals Vitals: Vital Signs - 24 hr 01/29/18 16:35 Temperature 36.8 C Heart Rate 120 H Respiratory 18 Rate Blood Pressure 135/87 H O2 Saturation 99 Oxygen O2 Source Room air PD MEDICAL DECISION MAKING - ED course ED course: The [place] prescription monitoring program was queried with regard to this patient. No concerning findings were found. - Sepsis Event Vital Signs: Vital Signs - 24 hr 01/29/18 16:35 Temperature 36.8 C Heart Rate 120 H Respiratory 18 Rate Blood Pressure 135/87 H O2 Saturation 99 Oxygen O2 Source Room air Departure - Departure Disposition: 01 Home, Self Care Clinical Impression: Anxiety Back pain Qualifiers: Back pain location: low back pain Chronicity: chronic Back pain laterality: unspecified Sciatica presence: without sciatica Qualified Code(s): M54.5 - Low back pain; G89.29 - Other chronic pain; G89.29 - Other chronic pain Condition: Good Record reviewed to determine appropriate education?: Yes Instructions: ED Stress React Prescriptions: Alprazolam [Xanax] 1 mg PO BID PRN #10 tablet PRN Reason: Anxiety oxyCODONE/ACET 5/325 [Percocet 5 mg/325 mg] 1 each PO Q4-6H #10 tablet Comments: Call your doctor to arrange a follow-up appointment, make the next available appointment. In the interim, return anytime if worse or if new symptoms develop. As discussed, consider calling [employer] to explore changing your insurance to 1 where you can see a local physician. Your blood pressure was elevated today on check into the emergency department. This does not mean that you have hypertension, it is a common phenomenon to come to the emergency department and have elevated blood pressure. I recommend that you see your primary care physician within the week to have it rechecked when you are feeling better. Do not drink or drive while taking narcotic pain medication. Note that many narcotic pain relievers also contain Tylenol/acetaminophen. Please ensure that your total dose of acetaminophen from all sources does not exceed 3 g (3000 mg) per day. You may get constipated while on this medication. Take a stool softener such as Colace twice a day while you are on it. Also add an zzwx-lyf-necykus laxative such as senna or MiraLAX on any day that you do not have a bowel movement. If you received a narcotic pain medication or sedative while in the emergency department, do not drive for the next 24 hours. The policy of this emergency department is to not give more than 3 prescriptions for narcotics or other controlled substances in any 1 year. You have already surpassed this benchmark and we cannot prescribe narcotics for you. I encourage you to follow up with your primary care physician or to establish care with a primary care physician for ongoing pain management. You are always welcome to seek emergency care here for this or new issues but there will likely be limitations in the prescription of narcotic pain medication.
[2018-01-29 16:51] VITALS: BP 127/76
== END 2018-01-29 17:22 | disposition home or self-care (01) ==
LOC: ED 16:31
DX: F41.9 Anxiety disorder, unspecified (principal); M54.5 Low back pain; G89.29 Other chronic pain; T42.4X6A Underdosing of benzodiazepines, initial encounter; Z91.128 Patient's intentional underdosing of medication regimen for other reason; I10 Essential (primary) hypertension; K21.9 Gastro-esophageal reflux disease without esophagitis; J45.909 Unspecified asthma, uncomplicated; F17.200 Nicotine dependence, unspecified, uncomplicated
CPT/HCPCS: 99283; A9270

== ENCOUNTER 2018-02-05 15:32 | Emergency (ER) | payer MEDICAID ==
--- NOTE | 2018-02-05 17:41 | ED Physician Documentation ---
PD HPI BACK INJURY - Stated complaint Stated Complaint: MALE - History obtained from History obtained from: Patient - History of Present Illness Location: Both, Lower Type of injury: Twist (lifting and twisting while moving objects/boxes, with gradual onset and worsening.) Where injury occurred: Other (friends house) Timing - onset: Today Timing - duration: Days (1) Timing - details: Gradual onset (with much worsening today couple of hours ago) , Still present Improved by: Meds. No: Rest Worsened by: Moving, Palpating Associated symptoms: No: Fever, Weakness, Numbness, Incontinent of urine Contributing factors: No: Anticoagulated, Work related Similar symptoms before: No diagnosis (has had prior back pain episodes with use ) Review of Systems Constitutional: denies: Fever, Chills, Myalgias Nose: denies: Rhinorrhea / runny nose, Congestion Throat: denies: Sore throat GI: denies: Abdominal Pain, Nausea, Vomiting, Diarrhea : reports: Dysuria (mild at times, and has history of partner Dx with Trich, and patient is as yet untreated for it.). denies: Discharge Skin: denies: Rash Musculoskeletal: reports: Back pain. denies: Neck pain Neurologic: denies: Focal weakness, Numbness, Near syncope PD PAST MEDICAL HISTORY - Past Medical History Cardiovascular: Hypertension Respiratory: Asthma GI: GERD : None Psych: Anxiety, ADD/ADHD Musculoskeletal: Chronic back pain - Past Surgical History Past Surgical History: No - Present Medications Home Medications: Ambulatory Orders Medication Instructions Recorded Confirmed Quetiapine Fumarate [Seroquel Xr] 300 mg PO DAILY #30 tab.er.24h 12/15/16 Albuterol Sulfate [Proventil Hfa 1 - 2 puffs IH Q4H PRN #1 11/22/17 Inhaler] hfa.aer.ad Cyclobenzaprine [Flexeril] 10 mg PO TID PRN #20 tablet 11/22/17 Oxycodone HCl/Acetaminophen 1 - 2 tab PO Q4H PRN #10 tablet 11/22/17 [Percocet 5-325 mg Tablet] Cyclobenzaprine [Flexeril] 10 mg PO TID PRN #20 tablet 01/26/18 Oxycodone HCl/Acetaminophen 1 - 2 each PO Q6H PRN #14 tablet 01/26/18 [Percocet 5-325 mg Tablet] Alprazolam [Xanax] 1 mg PO BID PRN #10 tablet 01/29/18 oxyCODONE/ACET 5/325 [Percocet 5 1 each PO Q4-6H #10 tablet 01/29/18 mg/325 mg] Dexamethasone [Decadron] 4 mg PO DAILY #5 tablet 02/05/18 Methocarbamol [Robaxin] 500 mg PO Q6H PRN #25 tablet 02/05/18 Metronidazole [Flagyl] 500 mg PO BID #14 tablet 02/05/18 Naproxen [Naprosyn] 500 mg PO BID #20 tablet 02/05/18 Oxycodone HCl/Acetaminophen 1 - 2 each PO Q6H PRN #20 tablet 02/05/18 [Percocet 5-325 mg Tablet] - Allergies Allergies/Adverse Reactions: Allergies Allergy/AdvReac Type Severity Reaction Status Date / Time kiwi Allergy Unknown Verified 01/29/18 16:38 watermelon Allergy Unknown Verified 01/29/18 16:38 - Social History Does the pt smoke?: Yes Smoking Status: Current every day smoker Does the pt drink ETOH?: No Does the pt have substance abuse?: No - Immunizations Immunizations are current?: Yes - POLST Patient has POLST: No PD ED PE NORMAL - Vitals Vital signs reviewed: Yes - General General: Alert and oriented X 3, Well developed/nourished, Other (appears in pain and guarding ROM of the low back. No rash nor sores. Is tender in lower back muscles. ) - Neck Neck: Supple, no meningeal sign, No adenopathy - Cardiac Cardiac: RRR, No murmur - Respiratory Respiratory: Clear bilaterally - Abdomen Abdomen: Soft, Non tender - Male Male : Deferred - Rectal Rectal: Deferred - Back Back: No CVA TTP, No spinal TTP (tender in lower lumbar muscles both sides, but right more than left. No trigger points per se. ) - Derm Derm: Normal color, Warm and dry, No rash - Neuro Neuro: Alert and oriented X 3, No motor deficit, No sensory deficit, Other ( normal reflexes at knees. ) Results - Vitals Vitals: Oxygen O2 Source Room air PD MEDICAL DECISION MAKING - ED course Complexity details: considered differential (back sounds musculoskeletal and he is anxious/in pain about that. And wants treatment for Trich exposure. ), d/w patient - Sepsis Event Vital Signs: Oxygen O2 Source Room air Departure - Departure Disposition: 01 Home, Self Care Clinical Impression: Trichomonal urethritis in male Low back strain Qualifiers: Encounter type: initial encounter Qualified Code(s): S39.012A - Strain of muscle, fascia and tendon of lower back, initial encounter Condition: Stable Record reviewed to determine appropriate education?: Yes Instructions: ED Sprain Strain Lumbar, ED Sciatica Prescriptions: Dexamethasone [Decadron] 4 mg PO DAILY #5 tablet Methocarbamol [Robaxin] 500 mg PO Q6H PRN #25 tablet PRN Reason: Spasms Metronidazole [Flagyl] 500 mg PO BID #14 tablet Naproxen [Naprosyn] 500 mg PO BID #20 tablet Oxycodone HCl/Acetaminophen [Percocet 5-325 mg Tablet] 1 - 2 each PO Q6H PRN # 20 tablet PRN Reason: Pain Comments: Heat for the low back periodically to reduce spasm. Naproxen twice daily anti- inflammatory as well as Decadron daily for 5 days. Robaxin muscle relaxant for spasms. Add Percocet if needed for pain. Metronidazole for the trick and Monus exposure. Recheck if not improving over the next few days. Discharge Date/Time: 02/05/18 18:45
[2018-02-05] MEDS ORDERED: IBUPROFEN 600 MG TABLET PO STA (17:59)
[2018-02-05] MEDS ORDERED: LORazepam 0.5 MG TABLET PO STA (17:59)
[2018-02-05] MEDS ORDERED: oxyCOD/ACETAMIN 5 MG/325 MG TABLET PO STA (17:59)
[2018-02-05 18:47] VITALS: BP 122/80
== END 2018-02-05 18:45 | disposition home or self-care (01) ==
LOC: ED 15:32
DX: A59.03 Trichomonal cystitis and urethritis (principal); S39.012A Strain of muscle, fascia and tendon of lower back, initial encounter; X50.9XXA Other and unspecified overexertion or strenuous movements or postures, initial encounter; I10 Essential (primary) hypertension; G89.29 Other chronic pain; F17.200 Nicotine dependence, unspecified, uncomplicated
CPT/HCPCS: 99283; A9270

== ENCOUNTER 2018-03-01 22:47 | Emergency (ER) | payer MEDICAID ==
[2018-03-01 22:52] VITALS: BP 105/58
[2018-03-01 23:04] LABS: BASOPHILS % (AUTO) 0.4 %; EOSINOPHILS # (AUTO) 0.1 10^3/uL (0.0-0.7); EOSINOPHILS % (AUTO) 1.1 %; HGB - HEMOGLOBIN 14.7 g/dL (14.0-18.0); LYMPHOCYTES # (AUTO) 2.1 10^3/uL (1.5-3.5); LYMPHOCYTES % (AUTO) 26.5 %; MEAN CORPUSCULAR HEMOGLOBIN 32.5 pg (27.0-31.0); MEAN CORPUSCULAR HGB CONC 34.9 g/dL (32.0-36.0); MEAN CORPUSCULAR VOLUME 93.3 fL (80.0-94.0); MEAN PLATELET VOLUME 7.4 fL (7.4-11.4); MONOCYTES # (AUTO) 0.5 10^3/uL (0.0-1.0); MONOCYTES % (AUTO) 5.8 %; NEUTROPHILS # (AUTO) 5.3 10^3/uL (1.5-6.6); NEUTROPHILS % (AUTO) 66.2 %; PLT - PLATELET COUNT 230 10^3/uL (130-450); RED BLOOD COUNT 4.53 10^6/uL (4.70-6.10); RED CELL DISTRIBUTION WIDTH 13.9 % (12.0-15.0); WHITE BLOOD COUNT 8.1 x10^3/uL (4.8-10.8)
[2018-03-01 23:09] LABS: BILIRUBIN,URINE NEGATIVE (NEGATIVE); GLUCOSE, URINE (UA) NEGATIVE (NEGATIVE); KETONES,URINE (UA) NEGATIVE (NEGATIVE); LEUKOCYTE ESTERASE, URINE NEGATIVE (NEGATIVE); NITRITE,URINE NEGATIVE (NEGATIVE); OCCULT BLOOD,URINE NEGATIVE (NEGATIVE); PH,URINE 5.5 PH (5.0-7.5); PROTEIN,URINE NEGATIVE (NEGATIVE); UROBILINOGEN,URINE 0.2 (NORMAL) E.U./dL (NORMAL)
[2018-03-01 23:17] LABS: CLARITY,URINE CLEAR (CLEAR)
[2018-03-01 23:22] LABS: ALBUMIN 4.1 g/dL (3.2-5.5); ALBUMIN/GLOBULIN RATIO 1.2 (1.0-2.2); BILIRUBIN,TOTAL 0.5 mg/dL (0.2-1.0); CALCIUM 9.6 mg/dL (8.5-10.3); CREATININE 0.9 mg/dL (0.6-1.2); TOTAL PROTEIN 7.5 g/dL (6.7-8.2)
[2018-03-01] MEDS ORDERED: KETOROLAC 60 MG/2 ML VIAL IM STA (23:27)
[2018-03-01] MEDS ORDERED: CYCLOBENZAPRINE 10 MG TABLET PO STA (23:27)
--- NOTE | 2018-03-01 23:27 | ED Physician Documentation ---
PD HPI ABD PAIN - Stated complaint Stated Complaint: ABD PAIN - Chief complaint Chief Complaint: Abd Pain - History obtained from History obtained from: Patient - History of Present Illness Timing - onset: How many days ago (3) Timing - details: Gradual onset, Still present Quality: Cramping, Aching Location: Suprapubic Radiation: Left flank Associated symptoms: Nausea, Dysuria. No: Fever, Hematuria Similar symptoms before: Work up / diagnostics Recently seen: Not recently seen - Treatment prior to arrival Treatment prior to arrival: Patient is a 27 year old male with a history of chronic back pain secondary to lumbar spine problems. Patient is presenting to the emergency department for intermittent abdominal pain, abdominal cramping and back pain. patient states that the back pain has been going on for years and the abdominal pain has been going on for a few days. patient reports that he was treated for trichamonas exposure a few weeks ago and thinks that it may be that. Review of Systems Ten Systems: 10 systems reviewed and negative Constitutional: denies: Fever, Chills GI: reports: Abdominal Pain, Diarrhea. denies: Nausea, Vomiting, Constipation : reports: Dysuria, Frequency Musculoskeletal: reports: Back pain PD PAST MEDICAL HISTORY - Past Medical History Past Medical History: Yes Cardiovascular: Hypertension Respiratory: Asthma GI: GERD : None Psych: Anxiety, ADD/ADHD Musculoskeletal: Chronic back pain - Past Surgical History Past Surgical History: No - Present Medications Home Medications: Ambulatory Orders Medication Instructions Recorded Confirmed Quetiapine Fumarate [Seroquel Xr] 300 mg PO DAILY #30 tab.er.24h 12/15/16 Albuterol Sulfate [Proventil Hfa 1 - 2 puffs IH Q4H PRN #1 11/22/17 Inhaler] hfa.aer.ad Cyclobenzaprine [Flexeril] 10 mg PO TID PRN #20 tablet 11/22/17 Cyclobenzaprine [Flexeril] 10 mg PO TID PRN #20 tablet 01/26/18 Alprazolam [Xanax] 1 mg PO BID PRN #10 tablet 01/29/18 Dexamethasone [Decadron] 4 mg PO DAILY #5 tablet 02/05/18 Methocarbamol [Robaxin] 500 mg PO Q6H PRN #25 tablet 02/05/18 Naproxen [Naprosyn] 500 mg PO BID #20 tablet 02/05/18 Cyclobenzaprine [Flexeril] 10 mg PO TID PRN #10 tablet 03/01/18 - Allergies Allergies/Adverse Reactions: Allergies Allergy/AdvReac Type Severity Reaction Status Date / Time kiwi Allergy Unknown Verified 03/01/18 22:51 watermelon Allergy Unknown Verified 03/01/18 22:51 - Social History Does the pt smoke?: Yes Smoking Status: Current every day smoker Does the pt drink ETOH?: No Does the pt have substance abuse?: No - Immunizations Immunizations are current?: Yes - POLST Patient has POLST: No PD ED PE NORMAL - Vitals Vital signs reviewed: Yes - General General: Alert and oriented X 3 - HEENT HEENT: Atraumatic - Cardiac Cardiac: RRR - Respiratory Respiratory: No respiratory distress - Derm Derm: Normal color, Warm and dry - Extremities Extremities: No deformity - Neuro Neuro: Alert and oriented X 3 PD ED PE EXPANDED - Abdomen Abdomen: Tender to palpation, Generalized/diffuse. No: Rebound, Guarding - Back Back: Soft tissue tenderness (right lumbar paraspinal muscle tenderness and hypertonicty) Results - Vitals Vitals: Vital Signs - 24 hr 03/01/18 22:50 Temperature 36.8 C Heart Rate 107 H Respiratory 18 Rate Blood Pressure 105/58 L O2 Saturation 100 Oxygen O2 Source Room air - Labs Labs: Laboratory Tests 03/01/18 03/01/18 03/01/18 22:55 22:59 22:59 WBC 8.1 RBC 4.53 L Hgb 14.7 Hct 42.3 MCV 93.3 MCH 32.5 H MCHC 34.9 RDW 13.9 Plt Count 230 MPV 7.4 Neut # (Auto) 5.3 Lymph # (Auto) 2.1 [place] # (Auto) 0.5 Eos # (Auto) 0.1 Baso # (Auto) 0.0 Absolute Nucleated RBC 0.00 Nucleated RBC % 0.0 Sodium 138 Potassium 4.0 Chloride 101 Carbon Dioxide 27 Anion Gap 10.0 BUN 15 Creatinine 0.9 Estimated GFR (MDRD) 100 Glucose 101 H Calcium 9.6 Total Bilirubin 0.5 AST 23 ALT 24 Alkaline Phosphatase 59 Total Protein 7.5 Albumin 4.1 Globulin 3.4 Albumin/Globulin Ratio 1.2 Lipase 36 Urine Color YELLOW Urine Clarity CLEAR Urine pH 5.5 Ur Specific [place] >=1.030 H Urine Protein NEGATIVE Urine Glucose (UA) NEGATIVE Urine Ketones NEGATIVE Urine Occult Blood NEGATIVE Urine Nitrite NEGATIVE Urine Bilirubin NEGATIVE Urine Urobilinogen 0.2 (NORMAL) Ur Leukocyte Esterase NEGATIVE Ur Microscopic Review NOT INDICATED Urine Culture Comments NOT INDICATED PD MEDICAL DECISION MAKING - ED course Complexity details: reviewed old records, reviewed results, re-evaluated patient , considered differential, d/w patient ED course: Patient was seen and examined at bedside. patient's vital signs were within normal limits. labs were drawn and urine was collected. patient was treated with toradol and flexeril. patient's diagnostics were all within normal limits. Patient required no further work up at this time and was stable for discharge with outpatient follow up. - Sepsis Event Vital Signs: Vital Signs - 24 hr 03/01/18 22:50 Temperature 36.8 C Heart Rate 107 H Respiratory 18 Rate Blood Pressure 105/58 L O2 Saturation 100 Oxygen O2 Source Room air Departure - Departure Disposition: 01 Home, Self Care Clinical Impression: Low back strain Condition: Good Instructions: ED Spasm Back No Trauma Follow-Up: primary,care provider [Other] - As Needed Prescriptions: Cyclobenzaprine [Flexeril] 10 mg PO TID PRN #10 tablet PRN Reason: Spasms Comments: Your diagnostics today were within normal limits. there are no acute abnormalities. You should continue to apply ice and heat to your back. you can take motrin or tylenol as needed for pain and flexeril for spasm. your cultures have been sent off and should come back in the next three days. You should also make sure you stay well hydrated. you should follow up with your doctor if your symptoms persist. You may return to the emergency department at any time for new, worsening or uncontrollable symptoms.
== END 2018-03-01 23:43 | disposition home or self-care (01) ==
LOC: ED 22:47
DX: S39.012A Strain of muscle, fascia and tendon of lower back, initial encounter (principal); X58.XXXA Exposure to other specified factors, initial encounter; R10.9 Unspecified abdominal pain; R30.0 Dysuria; I10 Essential (primary) hypertension; F17.200 Nicotine dependence, unspecified, uncomplicated
CPT/HCPCS: 80053; 81003; 83690; 85025; 87491; 87591; 99283; A9270; 81001; 87086

== ENCOUNTER 2018-03-06 11:19 | Emergency (ER) | payer MEDICAID ==
[2018-03-06] MEDS ORDERED: LIDOCAINE 1% 2 ML VIAL SUBQ STA (12:27)
[2018-03-06] MEDS ORDERED: ACETAMINOPHEN 500 MG TABLET PO STA (12:30)
[2018-03-06] MEDS ORDERED: IBUPROFEN 600 MG TABLET PO STA (12:30)
[2018-03-06] MEDS ORDERED: LIDOCAINE 1% 2 ML VIAL ONE (12:46)
--- NOTE | 2018-03-06 12:49 | ED Physician Documentation ---
History of Present Illness - Stated complaint Stated Complaint: FINGER LACERATION - Chief complaint Chief Complaint: Laceration - History obtained from History obtained from: Patient - Additonal information Additional information: 27-year-old male presents the emergency department with complaints of a laceration to his right little finger tip. The bleeding currently is controlled. The patient denies loss of function or sensory changes. No other area of injury. The patient is up-to-date on his tetanus Review of Systems Constitutional: denies: Fever Eyes: denies: Discharge Skin: reports: Laceration (s) Musculoskeletal: denies: Joint pain Neurologic: denies: Head injury Immunocompromised: denies: Chemotherapy PD PAST MEDICAL HISTORY - Past Medical History Past Medical History: Yes Cardiovascular: Hypertension Respiratory: Asthma GI: GERD : None Psych: Anxiety, ADD/ADHD Musculoskeletal: Chronic back pain - Past Surgical History Past Surgical History: Yes - Present Medications Home Medications: Ambulatory Orders Medication Instructions Recorded Confirmed Quetiapine Fumarate [Seroquel Xr] 300 mg PO DAILY #30 tab.er.24h 12/15/16 Albuterol Sulfate [Proventil Hfa 1 - 2 puffs IH Q4H PRN #1 11/22/17 Inhaler] hfa.aer.ad Naproxen [Naprosyn] 500 mg PO BID #20 tablet 02/05/18 - Allergies Allergies/Adverse Reactions: Allergies Allergy/AdvReac Type Severity Reaction Status Date / Time kiwi Allergy Unknown Verified 03/01/18 22:51 watermelon Allergy Unknown Verified 03/06/18 11:24 - Social History Does the pt smoke?: Yes Smoking Status: Current every day smoker Does the pt drink ETOH?: No Does the pt have substance abuse?: No - Immunizations Immunizations are current?: Yes Immunizations: TDAP current <10years - POLST Patient has POLST: No PD ED PE NORMAL - General General: Alert and oriented X 3, No acute distress - HEENT HEENT: Atraumatic, PERRL, EOMI, Ears normal - Derm Derm: Normal color, Other (The patient has a 1 cm irregular laceration on the right little finger tip on the volar surface. No active bleeding or signs of foreign body) - Extremities Extremities: Other (The patient has full active range of motion of the hand, normal sensation light touch, a normal radial pulse, brisk cap refill and no evidence of ligamentous or tendon injury) - Neuro Neuro: Alert and oriented X 3 - Psych Psych: Normal mood Results - Vitals Vitals: Vital Signs - 24 hr 03/06/18 11:21 Temperature 36.4 C L Heart Rate 84 Respiratory 18 Rate Blood Pressure 129/62 O2 Saturation 99 Oxygen O2 Source Room air Procedures - Laceration (location) Finger right Length in cm: 1 Wound type: Irregular Neurovascular status: Sensory intact, Motor intact, Vascular intact Tendon involvement: No: Tendon intact, Tendon Injury Anesthesia: Lidocaine 1% Wound Preparation: Betadine, Irrigated copiously NS Skin layer closure: Nylon, Interrupted, Sutures - enter # (5) Other: Patient tolerated well, Dressing applied, Tetanus UTD Complexity: Simple PD MEDICAL DECISION MAKING - ED course ED course: The wound was closed using sutures, the patient will have his sutures removed in 7-10 days. I discussed warning signs for infection and worsening and recommended returning to the emergency department immediately for worsening or any concerns. - Sepsis Event Vital Signs: Vital Signs - 24 hr 03/06/18 11:21 Temperature 36.4 C L Heart Rate 84 Respiratory 18 Rate Blood Pressure 129/62 O2 Saturation 99 Oxygen O2 Source Room air Departure - Departure Disposition: 01 Home, Self Care Clinical Impression: Finger laceration Qualifiers: Encounter type: initial encounter Finger: little finger Damage to nail status: without damage Foreign body presence: without foreign body Laterality: unspecified laterality Qualified Code(s): S61.218A - Laceration without foreign body of other finger without damage to nail, initial encounter Condition: Good Instructions: ED Laceration All Comments: Please have your sutures removed in 7-10 days. Please return to the emergency department immediately for worsening symptoms, signs of infection or any concerns
[2018-03-06 13:03] VITALS: BP 138/68
== END 2018-03-06 13:01 | disposition home or self-care (01) ==
LOC: ED 11:19
DX: S61.216A Laceration without foreign body of right little finger without damage to nail, initial encounter (principal); X58.XXXA Exposure to other specified factors, initial encounter; I10 Essential (primary) hypertension; F17.200 Nicotine dependence, unspecified, uncomplicated
CPT/HCPCS: 12001; 99283; A9270

== ENCOUNTER 2018-04-02 09:50 | Emergency (ER) | payer MEDICAID ==
[2018-04-02] MEDS ORDERED: KETOROLAC 60 MG/2 ML VIAL IM STA (10:25)
[2018-04-02] MEDS ORDERED: DEXAMETHASONE 10 MG/ML VIAL PO STA (10:26)
--- NOTE | 2018-04-02 10:39 | ED Physician Documentation ---
PD HPI BACK PAIN - Stated complaint Stated Complaint: BACK PX - Chief complaint Chief Complaint: Back Pain - History obtained from History obtained from: Patient - History of Present Illness Timing - onset: Chronic (Worse today) Timing - details: Still present in ED Location: Mid Quality: Pain Associated symptoms: No: Fever, Incontinent of urine Worsened by: Lifting Contributing factors: Lifting Similar symptoms before: Diagnosis (History of ruptured L4 vertebral disc.) - Treatment prior to arrival Treatment prior to arrival: Ibuprophen without relief. - Additional information Additional information: The patient is a 27-year-old male who presents with mid back pain that is worse today than usual. He has chronic back pain, with history of ruptured L4 vertebral disc. 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 He denies fever, urinary incontinence, or new numbness or weakness. 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 Past history is also significant for PTSD and bipolar disorder. Until 6 months ago he was taking Xanax 1 mg twice daily, but stopped the medication because he did not like the way it made him feel. Review of Systems Constitutional: denies: Fever Nose: denies: Congestion Throat: denies: Sore throat Cardiac: denies: Chest pain / pressure Respiratory: denies: Dyspnea, Cough GI: denies: Abdominal Pain, Nausea, Vomiting : denies: Dysuria, Incontinent Skin: denies: Rash Musculoskeletal: reports: Back pain. denies: Extremity pain Neurologic: reports: Numbness (chronic decreased sensation left leg). denies: Headache PD PAST MEDICAL HISTORY - Past Medical History Cardiovascular: Hypertension Respiratory: Asthma GI: GERD : None Psych: Anxiety, ADD/ADHD Musculoskeletal: Chronic back pain - Past Surgical History Past Surgical History: Yes - Present Medications Home Medications: Ambulatory Orders Medication Instructions Recorded Confirmed Quetiapine Fumarate [Seroquel Xr] 300 mg PO DAILY #30 tab.er.24h 12/15/16 Albuterol Sulfate [Proventil Hfa 1 - 2 puffs IH Q4H PRN #1 11/22/17 Inhaler] hfa.aer.ad Cyclobenzaprine [Flexeril] 10 mg PO TID PRN #20 tablet 04/02/18 HYDROcod/ACETAM 5/325 [[place] 5/325] 1 - 2 ea PO Q6H PRN #14 tablet 04/02/18 - Allergies Allergies/Adverse Reactions: Allergies Allergy/AdvReac Type Severity Reaction Status Date / Time kiwi Allergy Unknown Verified 04/02/18 10:01 watermelon Allergy Unknown Verified 04/02/18 10:01 - Social History Does the pt smoke?: Yes Smoking Status: Current every day smoker Does the pt drink ETOH?: No Does the pt have substance abuse?: No - Immunizations Immunizations are current?: Yes Immunizations: TDAP current <10years - POLST Patient has POLST: No PD ED PE NORMAL - Vitals Vital signs reviewed: Yes (normal) - General General: Alert and oriented X 3, Well developed/nourished, Other (Strong odor of tobacco use.) - HEENT HEENT: Atraumatic - Neck Neck: No bony TTP, No adenopathy - Cardiac Cardiac: RRR, No murmur - Respiratory Respiratory: No respiratory distress, Clear bilaterally - Abdomen Abdomen: Soft, Non tender - Back Back: No CVA TTP, Other (Tenderness to palpation along the paralumbar and parathoracic musculature bilaterally, without focal tenderness over the spinous processes.) - Derm Derm: Normal color, No rash - Extremities Extremities: No tenderness to palpate, No edema, No calf tenderness / cord, Other (Straight leg raise is negative bilaterally.) - Neuro Neuro: Alert and oriented X 3, No motor deficit, Other (Decreased light touch sensation along left leg from midthigh distally, without dermatomal distribution.) Results - Vitals Vitals: Oxygen O2 Source Room air PD MEDICAL DECISION MAKING - ED course Complexity details: reviewed old records, re-evaluated patient, considered differential, d/w patient ED course: The patient's presentation is most consistent with acute exacerbation of recurrent low back pain, with muscle spasms suggesting back strain. His presentation does not suggest epidural abscess, cauda equina syndrome, or spinal stenosis. Treatment in the emergency department included administration of dexamethasone 10 mg orally and ketorolac 60 mg IM. While this provided only minimal improvement in his symptoms, he was anxious to be discharged because of a crying baby in the adjacent gurney. He is being discharged with prescriptions for Flexeril and for Vicodin, 14 tablets. I discussed with him symptomatic treatment, outpatient follow-up, as well as potentially worrisome signs or symptoms that should prompt reevaluation in the emergency department. - Sepsis Event Vital Signs: Oxygen O2 Source Room air Departure - Departure Disposition: 01 Home, Self Care Clinical Impression: Back pain Qualifiers: Back pain location: low back pain Chronicity: acute Back pain laterality: bilateral Sciatica presence: without sciatica Qualified Code(s): M54.5 - Low back pain Condition: Stable Instructions: ED Low Back Pain Injury Prescriptions: Cyclobenzaprine [Flexeril] 10 mg PO TID PRN #20 tablet PRN Reason: Spasms HYDROcod/ACETAM 5/325 [[place] 5/325] 1 - 2 ea PO Q6H PRN #14 tablet PRN Reason: Pain Comments: Apply ice pack to your back intermittently for the next 3 or 4 days. Continue using ibuprofen for its anti-inflammatory effect. You can use Flexeril as prescribed if needed for spasms. You can use Vicodin as prescribed if needed for pain. Follow-up with primary physician within 2 weeks. Call to schedule an appointment. Return to the emergency department if you develop increasing pain, fever, urinary incontinence, or otherwise worsening symptoms. Discharge Date/Time: 04/02/18 11:12
[2018-04-02 11:14] VITALS: BP 128/70
== END 2018-04-02 11:12 | disposition home or self-care (01) ==
LOC: ED 09:50
DX: M54.5 Low back pain (principal); G89.29 Other chronic pain; I10 Essential (primary) hypertension; F17.200 Nicotine dependence, unspecified, uncomplicated
CPT/HCPCS: 96372; 99283

== ENCOUNTER 2018-04-09 06:50 | Emergency (ER) | payer MEDICAID ==
[2018-04-09] MEDS ORDERED: ALBUTEROL NEB 2.5 MG/3 ML INH STA (07:03)
[2018-04-09] MEDS ORDERED: DEXAMETHASONE 10 MG/ML VIAL PO STA (07:42)
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
[2018-04-09] MEDS ORDERED: LORazepam 0.5 MG TABLET PO STA (07:55)
[2018-04-09 08:25] VITALS: BP 128/73
== END 2018-04-09 08:26 | disposition home or self-care (01) ==
LOC: ED 06:50
DX: J45.21 Mild intermittent asthma with (acute) exacerbation (principal); F17.200 Nicotine dependence, unspecified, uncomplicated
CPT/HCPCS: 94640; 99283; A9270

== ENCOUNTER 2018-04-30 13:29 | Emergency (ER) | payer MEDICAID ==
[2018-04-30 13:53] VITALS: BP 127/74
[2018-04-30] MEDS ORDERED: oxyCODONE 5 MG TABLET PO STA (14:43)
--- NOTE | 2018-04-30 14:45 | ED Physician Documentation ---
History of Present Illness - Stated complaint Stated Complaint: KNEE PAIN - Chief complaint Chief Complaint: Ext Problem - History obtained from History obtained from: Patient - History of Present Illness Timing: Other (He has been working a lot at his dad's house doing home repairs and decking. He has subacute bilateral knee pain left greater than right and low back pain. There is no specific injury.) Review of Systems Constitutional: denies: Fever, Chills Cardiac: denies: Chest pain / pressure, Palpitations Respiratory: denies: Dyspnea, Cough PD PAST MEDICAL HISTORY - Past Medical History Cardiovascular: Hypertension Respiratory: Asthma GI: GERD : None Psych: Anxiety, ADD/ADHD, Post traumatic stress disorder Musculoskeletal: Chronic back pain - Past Surgical History Past Surgical History: Yes - Present Medications Home Medications: Ambulatory Orders Medication Instructions Recorded Confirmed Quetiapine Fumarate [Seroquel Xr] 300 mg PO DAILY #30 tab.er.24h 12/15/16 06/02/17 Albuterol Sulfate [Proventil Hfa 1 - 2 puffs IH Q4H PRN #1 11/22/17 Inhaler] hfa.aer.ad Albuterol Sulf [Ventolin Hfa 1 - 2 puffs INH Q4HR PRN #1 inhaler 04/09/18 Inhaler] Meloxicam 7.5 mg PO BIDWM #15 tablet 04/30/18 - Allergies Allergies/Adverse Reactions: Allergies Allergy/AdvReac Type Severity Reaction Status Date / Time kiwi Allergy Unknown Verified 04/09/18 07:05 watermelon Allergy Unknown Verified 04/09/18 07:05 - Social History Does the pt smoke?: Yes Smoking Status: Current every day smoker Does the pt drink ETOH?: No Does the pt have substance abuse?: No - Immunizations Immunizations are current?: Yes Immunizations: TDAP current <10years - POLST Patient has POLST: No PD ED PE NORMAL - Vitals Vital signs reviewed: Yes - General General: Alert and oriented X 3, No acute distress - Abdomen Abdomen: Soft, Non tender - Back Back: No spinal TTP - Extremities Extremities: No deformity (Both knees have painless passive range of motion and no effusion or warmth or redness. He does have some patellar clicking with passive range of motion.), Other (The patient has equal and normal Achilles and patellar reflexes bilaterally. Normal sensation in all areas of the legs. Patient denies saddle anesthesia. Normal strength in flexion-extension at the ankles, knees, and flexion of the hips.) Results - Vitals Vitals: Vital Signs - 24 hr 04/30/18 13:48 Temperature 36.7 C Heart Rate 85 Respiratory 18 Rate Blood Pressure 127/74 O2 Saturation 96 Oxygen O2 Source Room air PD MEDICAL DECISION MAKING - ED course Complexity details: reviewed old records (Relatively frequent ER use with narcotic prescriptions on most visits.) - Sepsis Event Vital Signs: Vital Signs - 24 hr 04/30/18 13:48 Temperature 36.7 C Heart Rate 85 Respiratory 18 Rate Blood Pressure 127/74 O2 Saturation 96 Oxygen O2 Source Room air Departure - Departure Disposition: 01 Home, Self Care Clinical Impression: Back pain Qualifiers: Back pain location: low back pain Chronicity: acute Back pain laterality: bilateral Sciatica presence: without sciatica Qualified Code(s): M54.5 - Low back pain Knee pain, bilateral Qualifiers: Chronicity: acute Qualified Code(s): M25.561 - Pain in right knee Condition: Good Record reviewed to determine appropriate education?: Yes Instructions: ED Chronic Pain Management Prescriptions: Meloxicam 7.5 mg PO BIDWM #15 tablet Comments: The policy of this emergency department is to not give more than 3 prescriptions for narcotics or other controlled substances in any 1 year. You have already surpassed this benchmark and we cannot prescribe narcotics for you. I encourage you to follow up with your primary care physician or to establish care with a primary care physician for ongoing pain management. You are always welcome to seek emergency care here for this or new issues but there will likely be limitations in the prescription of narcotic pain medication.
== END 2018-04-30 14:59 | disposition home or self-care (01) ==
LOC: ED 13:29
DX: M54.5 Low back pain (principal); M25.561 Pain in right knee; I10 Essential (primary) hypertension; F17.200 Nicotine dependence, unspecified, uncomplicated
CPT/HCPCS: 99281; 99284; A9270

== ENCOUNTER 2018-08-01 11:19 | Emergency (ER) | payer MEDICAID ==
[2018-08-01 12:05] VITALS: BP 130/72
--- NOTE | 2018-08-01 12:14 | ED Physician Documentation ---
PD HPI URI - Stated complaint Stated Complaint: CONGESTION/DIFFICULTY BREATHING - Chief complaint Chief Complaint: Resp - History obtained from History obtained from: Patient - History of Present Illness Timing - onset: Other (Sick for 3 weeks with nasal congestion and sinus pressure and now 3 days of productive cough and shortness of breath without measured fevers. Also has chronic back pain which is acting up for him and he requests medication for that as well. He had to miss work today and needs a work note. He has been using his inhaler with some relief.) Review of Systems Constitutional: reports: Fatigue. denies: Fever, Chills Nose: reports: Rhinorrhea / runny nose, Congestion, Sinus pressure / pain Throat: denies: Sore throat Respiratory: reports: Dyspnea, Cough GI: denies: Abdominal Pain, Vomiting PD PAST MEDICAL HISTORY - Past Medical History Cardiovascular: Hypertension Respiratory: Asthma GI: GERD : None Psych: Anxiety, Bipolar disorder, ADD/ADHD, Post traumatic stress disorder Musculoskeletal: Chronic back pain - Past Surgical History Past Surgical History: Yes - Present Medications Home Medications: Ambulatory Orders Medication Instructions Recorded Confirmed Quetiapine Fumarate [Seroquel Xr] 300 mg PO DAILY #30 tab.er.24h 12/15/16 06/02/17 Albuterol Sulfate [Proventil Hfa 1 - 2 puffs IH Q4H PRN #1 11/22/17 Inhaler] hfa.aer.ad Albuterol Sulf [Ventolin Hfa 1 - 2 puffs INH Q4HR PRN #1 inhaler 04/09/18 Inhaler] Amox/Clav 875/125 [Augmentin] 1 each PO Q12H #20 tablet 08/01/18 Hydrocodone/Chlorphen P-Stirex 5 ml PO BID PRN #90 ml 08/01/18 [Hydrocodone-Chlorphen ER Susp] Naproxen 500 mg PO BID PRN #20 tablet 08/01/18 predniSONE [Deltasone] 60 mg PO DAILY 5 Days tablet 08/01/18 - Allergies Allergies/Adverse Reactions: Allergies Allergy/AdvReac Type Severity Reaction Status Date / Time kiwi Allergy Unknown Verified 04/09/18 07:05 watermelon Allergy Unknown Verified 08/01/18 11:26 - Social History Does the pt smoke?: Yes Smoking Status: Current every day smoker Does the pt drink ETOH?: No Does the pt have substance abuse?: No - Immunizations Immunizations are current?: Yes Immunizations: TDAP current <10years - POLST Patient has POLST: No PD ED PE NORMAL - Vitals Vital signs reviewed: Yes - General General: Alert and oriented X 3, No acute distress - HEENT HEENT: PERRL, EOMI, Ears normal, Pharynx benign, Other (Moderate right maxillary sinus tenderness) - Neck Neck: Supple, no meningeal sign, No bony TTP - Cardiac Cardiac: RRR, No murmur - Respiratory Respiratory: Other (Slightly diminished at the bases with apical wheezes, no focal findings) - Abdomen Abdomen: Non tender - Derm Derm: No rash - Neuro Neuro: Alert and oriented X 3, Normal speech Results - Vitals Vitals: Vital Signs - 24 hr 08/01/18 08/01/18 11:24 12:04 Temperature 36 C L 36.9 C Heart Rate 90 91 Respiratory 20 20 Rate Blood Pressure 133/75 H 130/72 O2 Saturation 96 97 Oxygen O2 Source Room air Departure - Departure Disposition: 01 Home, Self Care Clinical Impression: Asthma Qualifiers: Asthma severity: moderate Asthma persistence: persistent Asthma complication type: with acute exacerbation Qualified Code(s): J45.41 - Moderate persistent asthma with (acute) exacerbation Sinusitis Qualifiers: Sinusitis location: maxillary Chronicity: acute Recurrence: recurrent Qualified Code(s): J01.01 - Acute recurrent maxillary sinusitis Condition: Good Record reviewed to determine appropriate education?: Yes Instructions: ED Sinusitis Abx Tx Prescriptions: Amox/Clav 875/125 [Augmentin] 1 each PO Q12H #20 tablet Hydrocodone/Chlorphen P-Stirex [Hydrocodone-Chlorphen ER Susp] 5 ml PO BID PRN #90 ml PRN Reason: Cough Naproxen 500 mg PO BID PRN #20 tablet PRN Reason: Pain predniSONE [Deltasone] 60 mg PO DAILY 5 Days tablet Comments: Call your doctor to arrange a follow-up appointment, make the next available appointment. In the interim, return anytime if worse or if new symptoms develop. Forms: Activity restrictions
== END 2018-08-01 12:22 | disposition home or self-care (01) ==
LOC: ED 11:19
DX: J45.41 Moderate persistent asthma with (acute) exacerbation (principal); J01.01 Acute recurrent maxillary sinusitis; I10 Essential (primary) hypertension; F17.200 Nicotine dependence, unspecified, uncomplicated
CPT/HCPCS: 99282; 99283

== ENCOUNTER 2018-09-01 10:06 | Emergency (ER) | payer MEDICAID ==
[2018-09-01] MEDS ORDERED: HYDROcod/ACETAM 5/325 MG TABLET PO STA (12:45)
[2018-09-01] MEDS ORDERED: DEXAMETHASONE 10 MG/ML VIAL PO STA (12:45)
[2018-09-01] MEDS ORDERED: LIDOCAINE PATCH 5% TOP STA (12:45)
[2018-09-01] MEDS ORDERED: KETOROLAC 15 MG/ML VIAL IM STA (12:45)
--- NOTE | 2018-09-01 12:48 | ED Physician Documentation ---
PD HPI BACK PAIN - Stated complaint Stated Complaint: BACK/LEG PX - Chief complaint Chief Complaint: Back Pain - History obtained from History obtained from: Patient - History of Present Illness Timing - onset: How many days ago (3) Timing - duration: Days (3) Timing - details: Gradual onset Pain level max: 6 Pain level now: 4 Severity Comments: mild Location: Lower, Left (back) Quality: Sharp Associated symptoms: No: Fever, Weakness, Numbness Improves with: Rest, Ice Worsened by: Movement Contributing factors: Lifting, Twisting Similar symptoms before: Diagnosis (Low back pain) Recently seen: Emergency Dept - Treatment prior to arrival Treatment prior to arrival: Rest and ice - Additional information Additional information: Patient tripped and fell 3 days ago twisting back. No numbness or weakness. No bowel or bladder difficulties. Pain radiates down left leg consistent w prior back pain episodes. No history of IVDU or immunocompromise. Review of Systems Ten Systems: 10 systems reviewed and negative Constitutional: reports: Reviewed and negative Eyes: reports: Reviewed and negative Ears: reports: Reviewed and negative Nose: reports: Reviewed and negative Throat: reports: Reviewed and negative Cardiac: reports: Reviewed and negative Respiratory: reports: Reviewed and negative GI: reports: Reviewed and negative : reports: Reviewed and negative Skin: reports: Reviewed and negative Musculoskeletal: reports: Reviewed and negative Neurologic: reports: Reviewed and negative Psychiatric: reports: Reviewed and negative Endocrine: reports: Reviewed and negative Immunocompromised: reports: Reviewed and negative PD PAST MEDICAL HISTORY - Past Medical History Past Medical History: Yes Cardiovascular: Hypertension Respiratory: Asthma Neuro: None Endocrine/Autoimmune: None GI: GERD : None HEENT: None Psych: Anxiety, Bipolar disorder, ADD/ADHD, Post traumatic stress disorder Musculoskeletal: Chronic back pain Derm: None - Past Surgical History Past Surgical History: Yes Derm: Other (Reviewed and not pertinent) - Present Medications Home Medications: Ambulatory Orders Medication Instructions Recorded Confirmed Quetiapine Fumarate [Seroquel Xr] 300 mg PO DAILY #30 tab.er.24h 12/15/16 06/02/17 RX: Albuterol Sulfate [Proventil 1 - 2 puffs IH Q4H PRN #1 11/22/17 Hfa Inhaler] hfa.aer.ad RX: Albuterol Sulf [Ventolin Hfa 1 - 2 puffs INH Q4HR PRN #1 inhaler 04/09/18 Inhaler] Amox/Clav 875/125 [Augmentin] 1 each PO Q12H #20 tablet 08/01/18 Hydrocodone/Chlorphen P-Stirex 5 ml PO BID PRN #90 ml 08/01/18 [Hydrocodone-Chlorphen ER Susp] RX: Naproxen 500 mg PO BID PRN #20 tablet 08/01/18 RX: predniSONE [Deltasone] 60 mg PO DAILY 5 Days tablet 08/01/18 Acetaminophen [Tylenol] 650 mg PO Q6H PRN #30 tablet 09/01/18 Lidocaine Patch 5% [Lidoderm Patch] 1 each PATCH BID #10 patch 09/01/18 RX: Capsaicin [Arthritis Pain 1 gm TP BID #1 tube 09/01/18 Relieving] RX: Ibuprofen 800 mg PO Q8HR #30 tablet 09/01/18 - Allergies Allergies/Adverse Reactions: Allergies Allergy/AdvReac Type Severity Reaction Status Date / Time kiwi Allergy Unknown Verified 09/01/18 10:26 watermelon Allergy Unknown Verified 09/01/18 10:26 - Living Situation Living Situation: reports: With family Living Arrangement: reports: At home - Social History Does the pt smoke?: No Smoking Status: Former smoker Does the pt drink ETOH?: No Does the pt have substance abuse?: Yes Substance Use and Type: Marijuana - Family History Family history: reports: Other (Reviewed and not pertinent) - Immunizations Immunizations are current?: Yes Immunizations: TDAP current <10years - POLST Patient has POLST: No PD ED PE NORMAL - Vitals Vital signs reviewed: Yes - General General: Alert and oriented X 3, No acute distress - HEENT HEENT: PERRL - Neck Neck: Supple, no meningeal sign - Cardiac Cardiac: RRR, No murmur - Respiratory Respiratory: Clear bilaterally - Abdomen Abdomen: Normal bowel sounds, Soft, Non tender, Non distended - Back Back: Other (Left paraspinous tenderness, no midline spinal tenderness) - Derm Derm: Warm and dry - Extremities Extremities: No deformity - Neuro Neuro: Alert and oriented X 3, Other (Normal patellar and achilles reflex, normal great toe raise, normal hip flexor strength) - Psych Psych: Normal mood, Normal affect Results - Vitals Vitals: Vital Signs - 24 hr 09/01/18 09/01/18 10:20 12:59 Temperature 36 C L Heart Rate 88 85 Respiratory 16 18 Rate Blood Pressure 142/97 H 141/87 H O2 Saturation 98 99 Oxygen O2 Source Room air PD MEDICAL DECISION MAKING - ED course Complexity details: reviewed old records, re-evaluated patient, considered differential, d/w patient ED course: 27-year-old male with acute exacerbation of chronic low back pain. No red flags by history or exam.Treated symptomatically and discharged with Tylenol, ibuprofen, lidocaine patch.Patient requesting narcotics but the patient was informed that narcotics worsen recovery of low back pain exacerbations. Departure - Departure Disposition: 01 Home, Self Care Clinical Impression: Back pain Condition: Good Instructions: ED Low Back Pain Injury Follow-Up: Your,doctor PCP [Other] Prescriptions: RX: Ibuprofen 800 mg PO Q8HR #30 tablet Acetaminophen [Tylenol] 650 mg PO Q6H PRN #30 tablet PRN Reason: PRN PAIN &/OR FEVER RX: Capsaicin [Arthritis Pain Relieving] 1 gm TP BID #1 tube Lidocaine Patch 5% [Lidoderm Patch] 1 each PATCH BID #10 patch Comments: Follow up w PCP within 24 hours. Return w worsening symptoms. Discharge Date/Time: 09/01/18 13:14
[2018-09-01 13:00] VITALS: BP 141/87
== END 2018-09-01 13:14 | disposition home or self-care (01) ==
LOC: ED 10:06
DX: M54.5 Low back pain (principal); G89.29 Other chronic pain; I10 Essential (primary) hypertension
CPT/HCPCS: 96372; 99283; A9270